=== PATIENT | male | born 1995 | race Caucasian/White ===

== ENCOUNTER 2023-10-12 09:22 | Emergency (ER) | payer BC, SELFPAY ==
[2023-10-12 09:50] VITALS: BP 139/73; PULSE 94; RESP 16; TEMP 36.9; O2SAT 100
--- NOTE | 2023-10-12 10:12 | ED.URI ---
HPI - URI/Sore Throat General Chief Complaint: Upper Respiratory Infection Stated Complaint: Wants to be tested for Strep History of Present Illness HPI Narrative: Pt is a 28 y/o male, presents to with right unilateral sore throat symptoms for the past 4 days, without associated fevers or chills. He denies associated rhinorrhea, nasal congestion or cough. He is taking OTC medications without relief, prompting his visit. Related Data Home Medications Medication Instructions Recorded Confirmed cetirizine 10 mg capsule (Zyrtec) 20 mg PO DAILY PRN Allergic 11/23/22 10/12/23 Symptoms Allergies Allergy/AdvReac Type Severity Reaction Status Date / Time No Known Allergies Allergy Verified 10/12/23 10:02 Review of Systems Constitutional: Constitutional: Reports as per HPI ENT: Reports as per HPI [facility] Past Medical History Medical History History of pineal cyst Family History Family History Grandparent Family history of malignant neoplasm Social History Social History (Updated 11/23/22 @ 14:30 by Gala Bob MA) Smoking status: Never smoker Alcohol intake: current Substance use: never Lack of Transportation: No Lack of Food: Never True Current Housing: I Have Housing Concerned About Future Housing: No Difficulty Paying Gas/Electric Bills: No Difficulty Paying for Meds: No Currently Unemployed: No Education: Master's Degree or Higher Difficulty w/ Childcare or Family Care: No Exam Const: General: healthy appearing, no acute distress and alert Nutritional Appearance: well nourished Orientation/consciousness: patient oriented x3 Limitations: no limitations HENMT: Head: normal to inspection Ears: external ears normal Mouth: Yes Normal oral and palatal mucosa present and Yes lip normal Throat: uvula midline Other: pt's right tonsil is 2+, left tonsil is not swollen. There is no visible abscess, no trismus, uvula is midline. No exudate noted Course Course Emergency Course: pt is advised of plan to treat with oral abx, empirically for possible early BANK ANALYST, close monitoring at home and PCP FU is stressed if symptoms are not improving. ER If swelling increases or condition worsens in any way. Pt is agreeable with plan. Level of Care: [facility] Care Visit ([id number]) Vital Signs Vital signs: Vital Signs Temperature 36.9 C 10/12/23 09:50 Pulse Rate 94 10/12/23 09:50 Respiratory Rate 16 10/12/23 09:50 Blood Pressure 139/73 10/12/23 09:50 Pulse Oximetry 100 10/12/23 09:50 Oxygen Delivery Room Air 10/12/23 09:50 Temperature 36.9 C 10/12/23 09:50 Pulse Rate 94 10/12/23 09:50 Respiratory Rate 16 10/12/23 09:50 Blood Pressure 139/73 10/12/23 09:50 Pulse Oximetry 100 10/12/23 09:50 Oxygen Delivery Room Air 10/12/23 09:50 MDM - URI/Sore Throat MDM Narrative Medical decision making narrative: pt is advised of plan to treat with oral abx, empirically for possible early BANK ANALYST, close monitoring at home and PCP FU is stressed if symptoms are not improving. ER If swelling increases or condition worsens in any way. Pt is agreeable with plan. Differential Diagnosis Differential diagnosis: Likely upper respiratory infection, pharyngitis and other (tonsillitis, BANK ANALYST) Discharge Plan Discharge Clinical Impression: Acute tonsillitis Qualifiers: Pharyngitis/tonsillitis etiology: unspecified etiology Qualified Code(s): J03.90 - Acute tonsillitis, unspecified Patient Disposition: Home, Self-Care Condition: Stable Instructions: Antibiotic Form, Peritonsillar Abscess (ED) Additional Instructions: START AND COMPLETE ORAL ANTIBIOTICS DIRECTED. SEE YOUR DOCTOR IN 3 DAYS IF SYMPTOMS ARE NOT IMPROVING. PUSH FLUIDS AND REST. PROCEED TO THE ER IF YOUR TONSIL SWELLING INCREASES OR WITH ANY FURTHER EMERGENCY CONCERNS Prescriptions:
== END 2023-10-12 10:59 | disposition home or self-care (01) ==
PROVIDERS: Emergency Provider Nurse Practitioner Family; PCP Clinical Nurse Specialist
DX: J03.90 Acute tonsillitis, unspecified (principal)
CPT/HCPCS: 99213; G0463

== ENCOUNTER 2024-07-07 00:24 | Day surgery (SDC) | payer BC, SELFPAY ==
--- NOTE | 2024-06-29 15:18 | SUR.PREOP ---
Report to the Outpatient Waiting Room, entrance under the green pavilion located off [facility], at time _1000_ on date _07/07/2024_. Planned Procedure Time: _1200_.? Time changes happen often and if your time is changed the preop area will call you the afternoon before. - You and your visitor will be asked to self-screen and do not enter if you have any COVID symptoms. Please call surgeon if you need to reschedule. - A mask is optional within the hospital at this time. Patients may have clear liquids (water, carbonated beverages, clear teas, apple juice) until 3 hours (0900) prior to surgery with a maximum of 20 ounces. - No food from midnight until time of surgery and no smoking. This includes no chewing gum, candy or mints. - Infants may have breast milk until 4 hours before surgery, formula 6 hours prior to surgery. - Children will be allowed to drink immediately following surgery.? If applicable, please bring a bottle or sippy cup to assist with drinking. Juice, water, soda, and popsicles are readily available.? For infants on formula, please bring formula the day of surgery.? Pacifiers are allowed. Take only the following medications with a SIP of water on the morning of surgery: _NA_ DO NOT STOP ANY OF YOUR OTHER PRESCRIPTION MEDICATIONS PRIOR TO SURGERY EXCEPT THE FOLLOWING Medications to discontinue per physician _NA_ Date to take last dose_NA_ Please no make-up, nail nauruan, hairspray, perfume, deodorant, or body powder the day of surgery.? No jewelry (including any body piercings) or valuables the day of surgery, leave them at home.? Please take a shower or bath the night before, or the morning of, surgery with an antibacterial soap.? Wear comfortable, loose fitting clothing.? Children are encouraged to wear pajamas. - Jewelry must be removed prior to entering the operating room.? Rings and piercings that are not removed may be cut off. - The hospital will not accept responsibility for valuables.? - Please leave all valuables, including medications, at home the day of surgery. If you are going home after surgery, a licensed new car driver must drive you home.? - NO public transportation without another adult if you receive anesthesia. - We recommend that an adult stay with you for 24 hours following discharge. - We also recommend that you do not drive, make important decision, drink alcoholic beverages, or take any drugs that were not prescribed by your health care provider for at least 24 hours after your discharge time. For Pediatric surgeries, we recommend two adults accompany the child home. Follow any additional instructions given to you from your surgeon. Telephone instructions given to _Efrain_and asked if any additional questions and then verbalized understanding. Patient advised to call surgeon office or pre surgery nurse liaison [phone] if any additional questions.
[2024-06-29 15:27] VITALS: BMI 27.7
[2024-07-07] VITALS (7 sets, daily range): BP systolic 116–131; BP diastolic 59–73; PULSE 70–80; RESP 12–18; TEMP 36.1–37.1; O2SAT 99–100
--- NOTE | 2024-07-07 07:22 | WPDANESEPPF ---
Anes - Initial Pre Proc Eval Procedure: Operation Date: 07/07/24 12:00 Proposed Procedures p Excision Recurrent Pilonidal Cyst - Rock Echeverria DO Date/Time: 07/07/24 07:22 Surgeon: Rock Echeverria DO Pre Op Diagnosis: Pilonidal Cyst Patient Data Age: 28 Gender: M Height: 1.85 m Weight: 95.26 kg Allergies Allergy/AdvReac Type Severity Reaction Status Date / Time No Known Allergies Allergy Verified 07/07/24 11:45 Home Medications ?Medication ?Instructions ?Recorded ?Confirmed ?Type No Home Medications 06/29/24 06/29/24 History Patient hx anesthesia problems: none Family hx anesthesia problems: none Results Review: All pre-operative results and documents have been reviewed as part of the pre-operative evaluation. [facility] Past Medical History Medical History History of pineal cyst Surgical History Surgical History H/O rhinoplasty 2020 H/O removal of cyst 2018 Family History Family History Grandparent Family history of malignant neoplasm Social History Social History Smoking status: Never smoker Alcohol intake: current Substance use: never Lack of Transportation: No Lack of Food: Never True Current Housing: I Have Housing Concerned About Future Housing: No Difficulty Paying Gas/Electric Bills: No Difficulty Paying for Meds: No Currently Unemployed: No Education: Master's Degree or Higher Difficulty w/ Childcare or Family Care: No Anes - Eval Final PreProcedure Day of Procedure 07/07/24 07:22 Patient weight: overweight Heart: regular rate and rhythm Lungs: clear to auscultation Airway: Mallampati scale class II Neurological: alert and oriented Last oral intake: >/= 8 hours ASA classification: I Emergent: no Anesthetic plan: proceed Anesthesia type and monitoring: general ETT and standard monitoring Results Review: All pre-operative results and documents have been reviewed as part of the pre-operative evaluation. Informed Consent: The patient's anesthetic plan and its attendant risks and benefits were discussed with the patient/family/POA. Questions were solicited and answers provided to the satisfaction of the patient/family/POA.
[2024-07-07] MEDS: LACTATED RINGERS 1,000 ML 30 ML IV CONT (12:10)
--- NOTE | 2024-07-07 13:06 | P.HP_ITS ---
H&P: HPI History of Present Illness Date/Time: 07/07/24 13:06 Chief Complaint: Recurrent pilonidal cyst Narrative: This is a 28-year-old man who presents for excision of recurrent pilonidal cyst. He has a history of an excision in 2018 but has a small area of recurrence. He reports no significant changes since last seen in the office. Review of Systems Review of Systems: All systems reviewed & are unremarkable except as noted in HPI and below Constitutional: Constitutional: Denies chills, Denies fever(s), Denies headache(s) and Denies weight loss Eyes: Eyes: Denies change in vision ENT: Denies dizziness, Denies headache(s), Denies neck mass and Denies throat swelling Cardiovascular: Cardiovascular: Denies chest pain, Denies lightheadedness and Denies dyspnea Respiratory: Respiratory: Denies cough, Denies dyspnea and Denies wheezing Gastrointestinal: Gastrointestinal: Denies abdominal pain, Denies change in bowel habits, Denies nausea and Denies vomiting Genitourinary: Genitourinary: Denies hematuria and Denies dysuria Musculoskeletal: Musculoskeletal: Reports as per HPI Integumentary/Breasts: Skin/Breast: Reports as per HPI Neurologic: Denies dizziness and Denies headache(s) Allergic/Immunologic: Allergic/Immunologic: Denies throat swelling and Denies wheezing PMFSH Past Medical History Medical History History of pineal cyst Surgical History Surgical History H/O rhinoplasty 2020 H/O removal of cyst 2018 Family History Family History Grandparent Family history of malignant neoplasm Social History Social History Smoking status: Never smoker Alcohol intake: current Substance use: never Lack of Transportation: No Lack of Food: Never True Current Housing: I Have Housing Concerned About Future Housing: No Difficulty Paying Gas/Electric Bills: No Difficulty Paying for Meds: No Currently Unemployed: No Education: Master's Degree or Higher Difficulty w/ Childcare or Family Care: No Meds Home Medications and Allergies Home Medications ?Medication ?Instructions ?Recorded ?Confirmed ?Type No Home Medications 06/29/24 06/29/24 History Allergies Allergy/AdvReac Type Severity Reaction Status Date / Time No Known Allergies Allergy Verified 07/07/24 11:45 Vital Signs Vital Signs - 24 hr 07/07/24 11:30 Temperature 98.7 F Pulse Rate 79 Respiratory Rate 16 Blood Pressure 131/71 Pulse Oximetry 100 Oxygen Delivery Room Air Exam Const: General: no acute distress and alert Orientation/consciousness: patient oriented x3 HENMT: Head: normocephalic and atraumatic Ears: hearing grossly normal bilaterally Face/Nose/Sinus: Normal nares present Mouth: Yes Normal oral and palatal mucosa present Eyes: Periorbital: periorbital findings normal Sclera: sclerae normal EOM: EOMs intact bilaterally Neck: Neck: normal visual inspection, no lymphadenopathy and trachea midline Chest: Chest palpation & inspection: normal inspection of the chest Resp: Effort & Inspection: normal respiratory effort Auscultation: clear to auscultation bilaterally Cardio: Jugular venous distension: no JVD Rate: regular rate Rhythm: regular rhythm Heart sounds: S1 normal heart sound present and S2 normal heart sound present Peripheral pulses: Peripheral pulses 2+ throughout GI: Inspection: normal to inspection GI Palp: Yes Soft to palpation, No T enderness to palpation present (GI), No Guarding due to palpation present (GI) and No Rebound tenderness present Percussion: Yes normal to percussion Auscultation: normal bowel sounds : General: Yes no CVA tenderness Back/Spine/Pelvis: Back: no CVA tenderness Sacrum: other (Small recurrent pilonidal cyst) Neuro: General: patient oriented x3, no focal motor deficits and CN's II-XI intact bilaterally Cognition (Neuro): normal cognition Speech: normal speech Motor exam (neuro): 5/5 motor strength present throughout Extrem: General: capillary refill normal and no clubbing, cyanosis or edema Assessment and Plan Assessment and plan (1) Pilonidal cyst: Code(s): L05.91 - Pilonidal cyst without abscess Status: Acute Assessment and Plan: I have recommended excision of recurrent pilonidal cyst. I have discussed the procedure, risks, benefits, and alternatives with the patient. All questions answered. No changes since last seen in office.
--- NOTE | 2024-07-07 13:06 | WPDHPUPDATE1 ---
History and Physical Update Update Date/Time: 07/07/24 13:06 History and Physical has been reviewed, including an updated exam of the patient. There are NO changes in the patient's condition. Risks, benefits, and alternatives have been discussed and questions answered. Patient agrees to proceed with procedure.
[2024-07-07] MEDS: ceFAZolin 2 GM/D5W 50 ML 2 GM/50 ML BAG IVPB (13:25)
[2024-07-07] MEDS: BUPIVACAINE/EPINEPHRINE 0.5% 50 ML VIAL 30 ML INFILTRATE (13:25)
--- NOTE | 2024-07-07 14:23 | P.OP_ITS ---
Procedure Note - Detailed Date of Procedure 07/07/24 Pre-op Diagnosis Recurrent Pilonidal Cyst Post-op Diagnosis Same Procedure Performed Excision of complicated recurrent pilonidal cyst Surgeon Rock Echeverria, DO Anesthesia General and Local ( 0.5% bupivacaine with epinephrine) Indications This is a 28-year-old man who presents with a recurrent pilonidal cyst. He has a history of pilonidal cyst excision in 2018. He was doing well for a period of time after that but has now noticed 2 small areas of intermittent drainage. He usually has blood tinged drainage and some discomfort in this region. He has tried topical treatment with mupirocin ointment but still continues to have the same wound healing issues. Discussions were made with the patient about further treatment options and decision was made to proceed with excision of recurrent pilonidal cyst. Findings Excision of recurrent complicated pilonidal cyst was performed. The patient had 2 small sinus tracts by about 6-7 cm. The 1 sinus tract was in the upper right side of the gluteal cleft and the other was in the lower midline region. There was some scarring from his prior surgery in between this area as well. An excision was performed encompassing the entire area measuring about 8- 10 cm. The specimen was excised and sent to the lab for pathology. Description of Procedure Procedure as well as risks, benefits, and alternatives were discussed with the patient. Written consent was obtained and placed in chart prior to procedure. Patient was brought back to surgical suite. He was placed supine on operating table. Time-out was done to confirm patient and procedure. He was then intubated by the Anesthesia Department. He was then repositioned to prone millicent- knife position on the operating table. His sacral region was prepped and draped in sterile fashion using Betadine prep. 0.5% bupivacaine with epinephrine was infiltrated locally around the pilonidal cyst. Lacrimal probes were used to identify the sinus tracts and probed for the directions that they were tracking. An elliptical incision was then made using a 10 blade scalpel to encompass the entire area. Electrocautery was used for hemostasis and for dissection down deep to the cyst cavity. Careful dissection was made around the entire cyst to excise it completely intact. The cyst was completely removed and sent to the lab for pathology. The wound bed was then inspected. Hemostasis was achieved with electrocautery. A 0.5% bupivacaine with epinephrine was infiltrated deep in the cavity. The wound bed was then irrigated with sterile saline. No other abnormalities were noted. The deep tissue was then reapproximated using 0 Vicryl simple interrupted sutures. The skin edges were then reapproximated using 2-0 and 3-0 Prolene vertical mattress interrupted sutures placed approximately 1 cm apart. Fluff gauze, ABD pad, and Medipore tape were then applied. The patient was then awakened from anesthesia, extubated, and transferred to recovery. Estimated Blood Loss 10 Packing No Pathology Yes ( pilonidal cyst) Complications No immediate complications Condition Stable Disposition Same day [facility] Billing Surgery - Charge Forward: Surgery Billing
== END 2024-07-07 16:07 | disposition home or self-care (01) ==
PROVIDERS: PCP Clinical Nurse Specialist; Visit Provider Surgery
PROC: (CPT 11772; principal; 2024-07-07 12:00)
DX: L05.01 Pilonidal cyst with abscess (principal); Z98.890 Other specified postprocedural states; Z80.9 Family history of malignant neoplasm, unspecified
CPT/HCPCS: 11772; 88305; J0330; J0690; J2003; J2250; J2405; J2704; J3010; J7120